=== PATIENT | male | born 1945 | race Caucasian/White ===

== ENCOUNTER 2024-11-05 10:36 | Emergency (ER) | payer MEDICARE, BC ==
[~2024-11-05] VITALS: Ht 160 cm; Wt 89.8 kg
[2024-11-05] MEDS ORDERED: GELATIN SPONGE,ABSORBABLE 1 EA SPONGE TP ONE (10:40)
[2024-11-05 12:01] VITALS: BP 166/71; TEMP 98.3; O2SAT 99
== END 2024-11-05 12:18 | disposition home or self-care (01) ==
LOC: ER 10:40
DX: I83.891 Varicose veins of right lower extremity with other complications (principal); Z87.442 Personal history of urinary calculi; Z98.890 Other specified postprocedural states

== ENCOUNTER 2024-11-13 10:55 | Emergency (ER) | payer MEDICARE, BC ==
[~2024-11-13] VITALS: Ht 170.2 cm; Wt 86.2 kg
[2024-11-13 11:12] VITALS: BP 158/66; TEMP 98.2
[2024-11-13 11:33] VITALS: O2SAT 98
== END 2024-11-13 11:33 | disposition home or self-care (01) ==
LOC: ER 11:09
DX: I83.899 Varicose veins of unspecified lower extremity with other complications (principal); Z87.442 Personal history of urinary calculi